=== PATIENT | female | born 1935 | race African-American/Black ===

== ENCOUNTER 2023-06-12 14:57 | Inpatient (IN) | payer OTHER ==
[~2023-06-12] VITALS: Ht 154.9 cm; Wt 59.0 kg
[2023-06-12] MEDS ORDERED: MORPHINE SULFATE 4 MG/ML SYR IVP ONE (15:10)
[2023-06-12 15:15] VITALS: BP 185/86; PULSE 78; RESP 18; TEMP 98; O2SAT 100; O2SAT 97
[2023-06-12 15:50] LABS: BASOPHILS # (AUTO) 0.1 K/uL (0.00-0.22); EOSINOPHILS # (AUTO) 0.1 K/uL (0-0.4); EOSINOPHILS % (AUTO) 1.4 % (0.0-4.0); HEMATOCRIT 36.4 % (36-48); HEMOGLOBIN 11.8 g/dL (12.0-16.0); LYMPHOCYTES # (AUTO) 2.1 K/uL (2.5-16.5); LYMPHOCYTES % (AUTO) 28.3 % (20.5-51.1); MEAN CORPUSCULAR HEMOGLOBIN 33 pg (27-31); MEAN CORPUSCULAR HGB CONC 32 g/dL (33-37); MEAN CORPUSCULAR VOLUME 100.7 fL (80-94); MONOCYTES # (AUTO) 0.8 K/uL (0.8-1.0); MONOCYTES % (AUTO) 10.8 % (1.7-9.3); NEUTROPHILS # (AUTO) 4.3 K/uL (1.8-7.7); NEUTROPHILS % (AUTO) 58.5 % (42.2-75.2); PLATELET COUNT (AUTO) 172 K/uL (140-450); RED BLOOD CELL COUNT(AUTO) 3.61 MIL/uL (4.20-5.40); RED CELL DISTRIBUTION WIDTH 15.5 % (11.6-13.7); WHITE BLOOD COUNT (AUTO) 7.3 K/uL (4.8-10.8)
[2023-06-12 16:17] LABS: ALANINE AMINOTRANSFERASE 11 U/L (12-78); ALBUMIN 3.2 g/dL (3.4-5.0); ALKALINE PHOSPHATASE 101 U/L (50-136); ANION GAP 14.5 (8-16); ASPARTATE AMINOTRANSFERASE 9 U/L (15-37); CARBON DIOXIDE 30.3 mmol/L (21-32); CHLORIDE 97 mmol/L (98-107); CREATININE 3.7 mg/dL (0.6-1.3); GLUCOSE 104 mg/dL (74-106); LIPASE 34 U/L (16-77); POTASSIUM 3.8 mmol/L (3.5-5.1); SODIUM SERUM 138 mmol/L (136-145); TOTAL BILIRUBIN 0.4 mg/dL (0.0-1.0); TOTAL PROTEIN, SERUM 7.6 g/dL (6.4-8.2); UREA NITROGEN, BLOOD 21 mg/dL (7-18)
[2023-06-12] MEDS ORDERED: MORPHINE SULFATE 4 MG/ML SYR ONE (16:20)
[2023-06-12 17:14] VITALS: O2SAT 100
[2023-06-12] MEDS ORDERED: LABETALOL 20 MG/4 ML VIAL IVP ONE ×2 (18:45→20:02)
[2023-06-12 19:01] VITALS: O2SAT 100
[2023-06-12 20:04] LABS: APPEARANCE,URINE CLEAR (CLEAR); BILIRUBIN,URINE NEGATIVE (NEGATIVE); BLOOD, URINE NEGATIVE (NEGATIVE); COLOR,URINE YELLOW (YELLOW); LEUKOCYTE ESTERASE ,URINE TRACE (NEGATIVE); NITRITE, URINE NEGATIVE (NEGATIVE); PROTEIN,URINE 2+ (NEGATIVE); UGLUCOSE NEGATIVE (NEGATIVE); UROBILINOGEN,URINE 0.2 EU/dL (0.2 - 1)
[2023-06-12 20:07] VITALS: O2SAT 100
[2023-06-12 20:15] LABS: RBC,URINE 0-5 /HPF (0-5)
[2023-06-12 20:16] LABS: BACTERIA,URINE 10-30 (MOD) /HPF (None Seen); SQUAMOUS EPITHELIAL CELL,UR 0-3 (FEW) /LPF (0-3 (FEW)); WBC,URINE 0-5 /HPF (0-5)
[2023-06-12 21:00] VITALS: PULSE 69; RESP 18; O2SAT 100
[2023-06-12 21:08] VITALS: BP 167/75; PULSE 63; PULSE 65; RESP 18; TEMP 98.7; O2SAT 100
[2023-06-12] MEDS ORDERED: ACETAMINOPHEN 325 MG TAB PO PRN (21:20)
[2023-06-12] MEDS ORDERED: cefTRIAXone 1,000 MG VIAL ONE (22:13)
[2023-06-13] VITALS (8 sets, daily range): BP systolic 112–167; BP diastolic 63–76; PULSE 56–107; RESP 16–18; TEMP 97.3–98.7; O2SAT 97–100
[2023-06-13 06:59] LABS: BASOPHILS % (AUTO) 0.8 % (0.0-2.0); EOSINOPHILS # (AUTO) 0.1 K/uL (0-0.4); EOSINOPHILS % (AUTO) 1.6 % (0.0-4.0); HEMATOCRIT 33.2 % (36-48); HEMOGLOBIN 10.7 g/dL (12.0-16.0); LYMPHOCYTES # (AUTO) 1.5 K/uL (2.5-16.5); LYMPHOCYTES % (AUTO) 27.9 % (20.5-51.1); MEAN CORPUSCULAR HEMOGLOBIN 33 pg (27-31); MEAN CORPUSCULAR HGB CONC 32 g/dL (33-37); MONOCYTES # (AUTO) 0.8 K/uL (0.8-1.0); MONOCYTES % (AUTO) 14.3 % (1.7-9.3); NEUTROPHILS % (AUTO) 55.4 % (42.2-75.2); PLATELET COUNT (AUTO) 162 K/uL (140-450); RED BLOOD CELL COUNT(AUTO) 3.29 MIL/uL (4.20-5.40); WHITE BLOOD COUNT (AUTO) 5.4 K/uL (4.8-10.8)
[2023-06-13 07:23] LABS: ALANINE AMINOTRANSFERASE 11 U/L (12-78); ALBUMIN 2.8 g/dL (3.4-5.0); ALKALINE PHOSPHATASE 82 U/L (50-136); ANION GAP 11.6 (8-16); ASPARTATE AMINOTRANSFERASE 10 U/L (15-37); CALCIUM 8.8 mg/dL (8.5-10.1); CARBON DIOXIDE 31.7 mmol/L (21-32); CHLORIDE 99 mmol/L (98-107); GLUCOSE 91 mg/dL (74-106); MAGNESIUM 1.8 mg/dL (1.8-2.4); PHOSPHORUS 5.1 mg/dL (2.5-4.9); POTASSIUM 4.3 mmol/L (3.5-5.1); SODIUM SERUM 138 mmol/L (136-145); TOTAL BILIRUBIN 0.3 mg/dL (0.0-1.0); TOTAL PROTEIN, SERUM 6.8 g/dL (6.4-8.2); UREA NITROGEN, BLOOD 23 mg/dL (7-18)
[2023-06-13 07:35] LABS: CREATININE 4.5 mg/dL (0.6-1.3)
[2023-06-13] MEDS: hydrALAZINE 10 MG TAB PO SCH ×3 (08:23→17:18)
[2023-06-13] MEDS: ONDANSETRON 4 MG/2 ML VIAL IVP PRN (20:54)
[2023-06-14] VITALS (7 sets, daily range): BP systolic 105–159; BP diastolic 50–79; PULSE 62–85; RESP 15–19; TEMP 97–98.8; O2SAT 96–100
[2023-06-14 06:30] LABS: ANION GAP 11.8 (8-16); CALCIUM 9.1 mg/dL (8.5-10.1); CARBON DIOXIDE 32.1 mmol/L (21-32); CHLORIDE 96 mmol/L (98-107); CREATININE 3.2 mg/dL (0.6-1.3); GLUCOSE 94 mg/dL (74-106); POTASSIUM 3.9 mmol/L (3.5-5.1); SODIUM SERUM 136 mmol/L (136-145); UREA NITROGEN, BLOOD 11 mg/dL (7-18)
[2023-06-14 06:32] LABS: MAGNESIUM 1.9 mg/dL (1.8-2.4); PHOSPHORUS 4.3 mg/dL (2.5-4.9)
[2023-06-14 07:08] LABS: BASOPHILS % (AUTO) 0.5 % (0.0-2.0); EOSINOPHILS # (AUTO) 0.2 K/uL (0-0.4); HEMATOCRIT 36.8 % (36-48); LYMPHOCYTES # (AUTO) 1.1 K/uL (2.5-16.5); LYMPHOCYTES % (AUTO) 19.8 % (20.5-51.1); MEAN CORPUSCULAR HEMOGLOBIN 33 pg (27-31); MEAN CORPUSCULAR HGB CONC 33 g/dL (33-37); MEAN CORPUSCULAR VOLUME 100.6 fL (80-94); MONOCYTES # (AUTO) 0.7 K/uL (0.8-1.0); MONOCYTES % (AUTO) 13.5 % (1.7-9.3); NEUTROPHILS # (AUTO) 3.5 K/uL (1.8-7.7); NEUTROPHILS % (AUTO) 63.2 % (42.2-75.2); PLATELET COUNT (AUTO) 168 K/uL (140-450); RED BLOOD CELL COUNT(AUTO) 3.66 MIL/uL (4.20-5.40); RED CELL DISTRIBUTION WIDTH 15.8 % (11.6-13.7); WHITE BLOOD COUNT (AUTO) 5.5 K/uL (4.8-10.8)
[2023-06-14] MEDS: hydrALAZINE 10 MG TAB PO SCH ×3 (08:09→16:16)
[2023-06-15 04:00] VITALS: BP 132/61; PULSE 71; RESP 18; TEMP 97.6; O2SAT 100
[2023-06-15 07:04] LABS: BASOPHILS % (AUTO) 0.8 % (0.0-2.0); EOSINOPHILS # (AUTO) 0.2 K/uL (0-0.4); EOSINOPHILS % (AUTO) 3.2 % (0.0-4.0); HEMATOCRIT 37.9 % (36-48); HEMOGLOBIN 12.1 g/dL (12.0-16.0); LYMPHOCYTES # (AUTO) 1.4 K/uL (2.5-16.5); MEAN CORPUSCULAR HEMOGLOBIN 33 pg (27-31); MEAN CORPUSCULAR HGB CONC 32 g/dL (33-37); MEAN CORPUSCULAR VOLUME 101.5 fL (80-94); MONOCYTES # (AUTO) 0.8 K/uL (0.8-1.0); NEUTROPHILS # (AUTO) 2.8 K/uL (1.8-7.7); PLATELET COUNT (AUTO) 163 K/uL (140-450); RED BLOOD CELL COUNT(AUTO) 3.73 MIL/uL (4.20-5.40); RED CELL DISTRIBUTION WIDTH 15.9 % (11.6-13.7); WHITE BLOOD COUNT (AUTO) 5.2 K/uL (4.8-10.8)
[2023-06-15 07:09] LABS: ANION GAP 14.1 (8-16); CALCIUM 9.1 mg/dL (8.5-10.1); CARBON DIOXIDE 28.7 mmol/L (21-32); CHLORIDE 99 mmol/L (98-107); CREATININE 3.3 mg/dL (0.6-1.3); GLUCOSE 105 mg/dL (74-106); POTASSIUM 3.8 mmol/L (3.5-5.1); SODIUM SERUM 138 mmol/L (136-145); UREA NITROGEN, BLOOD 16 mg/dL (7-18)
[2023-06-15 07:13] LABS: PHOSPHORUS 4.3 mg/dL (2.5-4.9)
[2023-06-15 08:00] VITALS: BP 154/76; PULSE 64; RESP 18; TEMP 97.9; O2SAT 100
[2023-06-15] MEDS: hydrALAZINE 10 MG TAB PO SCH ×3 (09:20→18:04)
[2023-06-15 12:00] VITALS: BP 145/73; PULSE 93; RESP 20
[2023-06-15] MEDS: ONDANSETRON 4 MG/2 ML VIAL IVP PRN ×2 (15:09→22:43)
[2023-06-15 16:00] VITALS: BP 141/65; PULSE 72; RESP 18; TEMP 98.9; O2SAT 100
[2023-06-15 20:00] VITALS: BP 151/82; PULSE 72; RESP 18; TEMP 98.8; O2SAT 100
[2023-06-15] MEDS: HYDROcodone/APAP 5/325 MG 1 TAB TAB PO PRN (22:36)
[2023-06-16] VITALS (8 sets, daily range): BP systolic 117–182; BP diastolic 63–100; PULSE 78–106; RESP 18; TEMP 97.4–98.9; O2SAT 94–100
[2023-06-16] MEDS ORDERED: PANTOPRAZOLE 40 MG INJ VIAL IVP ONE (01:40)
[2023-06-16] MEDS ORDERED: hydrALAZINE 20 MG/ML VIAL IVP PRN (01:40)
[2023-06-16] MEDS ORDERED: hydrALAZINE 20 MG/ML VIAL IVP ONE (03:15)
[2023-06-16] MEDS: ONDANSETRON 4 MG/2 ML VIAL IVP PRN ×2 (04:26→20:50)
[2023-06-16] MEDS ORDERED: KETOROLAC 30 MG/ML VIAL IVP ONE (05:00)
[2023-06-16 07:01] LABS: BASOPHILS % (AUTO) 0.2 % (0.0-2.0); EOSINOPHILS % (AUTO) 0.1 % (0.0-4.0); HEMOGLOBIN 12.8 g/dL (12.0-16.0); LYMPHOCYTES # (AUTO) 0.4 K/uL (2.5-16.5); LYMPHOCYTES % (AUTO) 4.5 % (20.5-51.1); MEAN CORPUSCULAR HEMOGLOBIN 33 pg (27-31); MEAN CORPUSCULAR HGB CONC 33 g/dL (33-37); MEAN CORPUSCULAR VOLUME 99.3 fL (80-94); MONOCYTES # (AUTO) 0.5 K/uL (0.8-1.0); NEUTROPHILS # (AUTO) 8.6 K/uL (1.8-7.7); NEUTROPHILS % (AUTO) 90.2 % (42.2-75.2); PLATELET COUNT (AUTO) 176 K/uL (140-450); RED BLOOD CELL COUNT(AUTO) 3.93 MIL/uL (4.20-5.40); RED CELL DISTRIBUTION WIDTH 15.7 % (11.6-13.7); WHITE BLOOD COUNT (AUTO) 9.6 K/uL (4.8-10.8)
[2023-06-16 08:00] LABS: ALANINE AMINOTRANSFERASE 7 U/L (12-78); ALBUMIN 3.5 g/dL (3.4-5.0); ALKALINE PHOSPHATASE 89 U/L (50-136); ASPARTATE AMINOTRANSFERASE 13 U/L (15-37); CALCIUM 9.5 mg/dL (8.5-10.1); CARBON DIOXIDE 19.6 mmol/L (21-32); CHLORIDE 93 mmol/L (98-107); GLUCOSE 184 mg/dL (74-106); MAGNESIUM 1.9 mg/dL (1.8-2.4); PHOSPHORUS 2.9 mg/dL (2.5-4.9); POTASSIUM 3.6 mmol/L (3.5-5.1); SODIUM SERUM 133 mmol/L (136-145); TOTAL BILIRUBIN 0.4 mg/dL (0.0-1.0); TOTAL PROTEIN, SERUM 7.9 g/dL (6.4-8.2); UREA NITROGEN, BLOOD 34 mg/dL (7-18)
[2023-06-16 08:06] LABS: CREATININE 5.1 mg/dL (0.6-1.3)
[2023-06-16] MEDS: hydrALAZINE 10 MG TAB PO SCH ×3 (09:00→17:16)
[2023-06-17] VITALS: BP 139/72; PULSE 113; PULSE 98; RESP 20; TEMP 98.9; O2SAT 99
[2023-06-17] MEDS: ONDANSETRON 4 MG/2 ML VIAL IVP PRN ×3 (03:57→14:02)
[2023-06-17 04:00] VITALS: BP 139/72; PULSE 102; PULSE 113; RESP 20; TEMP 98.4; O2SAT 99
[2023-06-17 07:27] LABS: BASOPHILS % (AUTO) 0.2 % (0.0-2.0); HEMATOCRIT 35.8 % (36-48); HEMOGLOBIN 11.5 g/dL (12.0-16.0); LYMPHOCYTES # (AUTO) 0.8 K/uL (2.5-16.5); MEAN CORPUSCULAR HEMOGLOBIN 32 pg (27-31); MEAN CORPUSCULAR HGB CONC 32 g/dL (33-37); MEAN CORPUSCULAR VOLUME 99.9 fL (80-94); MONOCYTES # (AUTO) 2.2 K/uL (0.8-1.0); MONOCYTES % (AUTO) 10.9 % (1.7-9.3); NEUTROPHILS % (AUTO) 84.9 % (42.2-75.2); PLATELET COUNT (AUTO) 147 K/uL (140-450); RED BLOOD CELL COUNT(AUTO) 3.59 MIL/uL (4.20-5.40); RED CELL DISTRIBUTION WIDTH 15.6 % (11.6-13.7)
[2023-06-17 07:42] LABS: ANION GAP 15.4 (8-16); CALCIUM 9.2 mg/dL (8.5-10.1); CARBON DIOXIDE 28.9 mmol/L (21-32); CHLORIDE 95 mmol/L (98-107); GLUCOSE 136 mg/dL (74-106); POTASSIUM 4.3 mmol/L (3.5-5.1); SODIUM SERUM 135 mmol/L (136-145); UREA NITROGEN, BLOOD 26 mg/dL (7-18)
[2023-06-17 07:50] LABS: MAGNESIUM 1.8 mg/dL (1.8-2.4)
[2023-06-17 08:00] VITALS: BP 169/84; PULSE 105; PULSE 107; PULSE 94; RESP 16; RESP 20; TEMP 98.3; O2SAT 98; O2SAT 99
[2023-06-17 08:01] LABS: CREATININE 4.8 mg/dL (0.6-1.3)
[2023-06-17] MEDS: hydrALAZINE 10 MG TAB PO SCH ×3 (09:54→16:50)
[2023-06-17] MEDS: HYDROcodone/APAP 5/325 MG 1 TAB TAB PO PRN (09:55)
[2023-06-17 12:00] VITALS: BP 155/81; PULSE 83; PULSE 88; RESP 17; TEMP 98; O2SAT 99
[2023-06-17 16:00] VITALS: BP 174/83; PULSE 90; PULSE 91; RESP 18; TEMP 98.3; O2SAT 100
[2023-06-17 20:00] VITALS: BP 140/67; PULSE 105; PULSE 93; RESP 17; TEMP 98.6; O2SAT 99
[2023-06-18] VITALS (7 sets, daily range): BP systolic 120–158; BP diastolic 63–91; PULSE 89–121; RESP 17–20; TEMP 97.9–99.7; O2SAT 96–100
[2023-06-18 07:13] LABS: BASOPHILS % (AUTO) 0.2 % (0.0-2.0); HEMATOCRIT 34.4 % (36-48); HEMOGLOBIN 11.2 g/dL (12.0-16.0); LYMPHOCYTES # (AUTO) 0.9 K/uL (2.5-16.5); LYMPHOCYTES % (AUTO) 3.6 % (20.5-51.1); MEAN CORPUSCULAR HEMOGLOBIN 32 pg (27-31); MEAN CORPUSCULAR HGB CONC 33 g/dL (33-37); MEAN CORPUSCULAR VOLUME 98.5 fL (80-94); MONOCYTES % (AUTO) 7.7 % (1.7-9.3); NEUTROPHILS # (AUTO) 22.8 K/uL (1.8-7.7); NEUTROPHILS % (AUTO) 88.5 % (42.2-75.2); PLATELET COUNT (AUTO) 137 K/uL (140-450); RED CELL DISTRIBUTION WIDTH 15.3 % (11.6-13.7)
[2023-06-18 07:21] LABS: CALCIUM 8.8 mg/dL (8.5-10.1); CARBON DIOXIDE 25.9 mmol/L (21-32); CHLORIDE 93 mmol/L (98-107); GLUCOSE 100 mg/dL (74-106); POTASSIUM 3.9 mmol/L (3.5-5.1); SODIUM SERUM 132 mmol/L (136-145); UREA NITROGEN, BLOOD 40 mg/dL (7-18)
[2023-06-18 07:26] LABS: MAGNESIUM 1.8 mg/dL (1.8-2.4); PHOSPHORUS 5.8 mg/dL (2.5-4.9)
[2023-06-18 07:45] LABS: CREATININE 6.1 mg/dL (0.6-1.3)
[2023-06-18 07:50] LABS: WHITE BLOOD COUNT (AUTO) 25.8 K/uL (4.8-10.8)
[2023-06-18] MEDS: ONDANSETRON 4 MG/2 ML VIAL IVP PRN ×2 (08:25→21:26)
[2023-06-18] MEDS: hydrALAZINE 10 MG TAB PO SCH ×3 (08:36→16:48)
[2023-06-18] MEDS: HYDROcodone/APAP 5/325 MG 1 TAB TAB PO PRN (09:15)
[2023-06-18] MEDS: METOCLOPRAMIDE 10 MG/2 ML INJ VIAL IVP SCH ×2 (11:08→16:52)
[2023-06-18] MEDS ORDERED: METOCLOPRAMIDE 10 MG TAB PO SCH (11:30)
[2023-06-18] MEDS: MORPHINE SULFATE 2 MG/ML SYR IVP PRN (15:33)
[2023-06-18] MEDS ORDERED: VANCOMYCIN PER PHARMACY MC PRN (18:05)
[2023-06-18] MEDS ORDERED: VANCOMYCIN 1,000 MG in DEXTROSE 5% 250 ML IV SCH (18:30)
[2023-06-18] MEDS: CEFEPIME 1,000 MG in DEXTROSE 5% 50 ML IV SCH (21:27)
[2023-06-19] VITALS (8 sets, daily range): BP systolic 116–149; BP diastolic 62–91; PULSE 80–108; RESP 18–20; TEMP 97.3–98.6; O2SAT 98–100
[2023-06-19] MEDS: ONDANSETRON 4 MG/2 ML VIAL IVP PRN (05:51)
[2023-06-19 07:14] LABS: BASOPHILS % (AUTO) 0.1 % (0.0-2.0); EOSINOPHILS # (AUTO) 0.1 K/uL (0-0.4); EOSINOPHILS % (AUTO) 0.2 % (0.0-4.0); HEMATOCRIT 33.9 % (36-48); HEMOGLOBIN 11.1 g/dL (12.0-16.0); LYMPHOCYTES # (AUTO) 1.1 K/uL (2.5-16.5); LYMPHOCYTES % (AUTO) 3.9 % (20.5-51.1); MEAN CORPUSCULAR HEMOGLOBIN 32 pg (27-31); MEAN CORPUSCULAR HGB CONC 33 g/dL (33-37); MEAN CORPUSCULAR VOLUME 98.1 fL (80-94); MONOCYTES # (AUTO) 1.2 K/uL (0.8-1.0); NEUTROPHILS # (AUTO) 26.3 K/uL (1.8-7.7); NEUTROPHILS % (AUTO) 91.8 % (42.2-75.2); PLATELET COUNT (AUTO) 148 K/uL (140-450); RED BLOOD CELL COUNT(AUTO) 3.45 MIL/uL (4.20-5.40); RED CELL DISTRIBUTION WIDTH 15.5 % (11.6-13.7)
[2023-06-19 07:22] LABS: ANION GAP 18.7 (8-16); CALCIUM 9.2 mg/dL (8.5-10.1); CARBON DIOXIDE 25.7 mmol/L (21-32); CHLORIDE 91 mmol/L (98-107); GLUCOSE 142 mg/dL (74-106); POTASSIUM 4.4 mmol/L (3.5-5.1); SODIUM SERUM 131 mmol/L (136-145); UREA NITROGEN, BLOOD 38 mg/dL (7-18)
[2023-06-19 07:29] LABS: CREATININE 5.4 mg/dL (0.6-1.3)
[2023-06-19 07:33] LABS: WHITE BLOOD COUNT (AUTO) 28.7 K/uL (4.8-10.8)
[2023-06-19] MEDS: METOCLOPRAMIDE 10 MG/2 ML INJ VIAL IVP SCH ×3 (08:00→16:50)
[2023-06-19 09:13] LABS: PHOSPHORUS 3.9 mg/dL (2.5-4.9)
[2023-06-19] MEDS: hydrALAZINE 10 MG TAB PO SCH ×3 (09:26→17:27)
[2023-06-19] MEDS: CEFEPIME 1,000 MG in DEXTROSE 5% 50 ML IV SCH (20:24)
[2023-06-19] MEDS: MORPHINE SULFATE 2 MG/ML SYR IVP PRN (21:41)
[2023-06-20] VITALS (7 sets, daily range): BP systolic 124–154; BP diastolic 73–89; PULSE 60–121; RESP 18–21; TEMP 97.9–98.6; O2SAT 96–99
[2023-06-20] MEDS: METOCLOPRAMIDE 10 MG/2 ML INJ VIAL IVP SCH ×3 (06:26→16:43)
[2023-06-20 07:07] LABS: ANION GAP 15.8 (8-16); BASOPHILS # (AUTO) 0.1 K/uL (0.00-0.22); BASOPHILS % (AUTO) 0.3 % (0.0-2.0); CALCIUM 9.5 mg/dL (8.5-10.1); CARBON DIOXIDE 28.4 mmol/L (21-32); CHLORIDE 91 mmol/L (98-107); EOSINOPHILS # (AUTO) 0.1 K/uL (0-0.4); EOSINOPHILS % (AUTO) 0.6 % (0.0-4.0); GLUCOSE 120 mg/dL (74-106); HEMATOCRIT 36.2 % (36-48); HEMOGLOBIN 11.8 g/dL (12.0-16.0); LYMPHOCYTES # (AUTO) 0.6 K/uL (2.5-16.5); LYMPHOCYTES % (AUTO) 3.1 % (20.5-51.1); MEAN CORPUSCULAR HEMOGLOBIN 32 pg (27-31); MEAN CORPUSCULAR HGB CONC 33 g/dL (33-37); MEAN CORPUSCULAR VOLUME 98.2 fL (80-94); MONOCYTES # (AUTO) 0.8 K/uL (0.8-1.0); MONOCYTES % (AUTO) 4.4 % (1.7-9.3); NEUTROPHILS # (AUTO) 16.3 K/uL (1.8-7.7); NEUTROPHILS % (AUTO) 91.6 % (42.2-75.2); PLATELET COUNT (AUTO) 162 K/uL (140-450); POTASSIUM 4.2 mmol/L (3.5-5.1); RED BLOOD CELL COUNT(AUTO) 3.69 MIL/uL (4.20-5.40); RED CELL DISTRIBUTION WIDTH 15.6 % (11.6-13.7); SODIUM SERUM 131 mmol/L (136-145); WHITE BLOOD COUNT (AUTO) 17.8 K/uL (4.8-10.8)
[2023-06-20 07:25] LABS: CREATININE 6.7 mg/dL (0.6-1.3); UREA NITROGEN, BLOOD 67 mg/dL (7-18)
[2023-06-20 08:02] LABS: MAGNESIUM 2.2 mg/dL (1.8-2.4); PHOSPHORUS 4.2 mg/dL (2.5-4.9)
[2023-06-20] MEDS: LORazepam 2 MG/ML VIAL IVP PRN (08:27)
[2023-06-20] MEDS: hydrALAZINE 10 MG TAB PO SCH ×3 (09:00→17:26)
[2023-06-20] MEDS ORDERED: VANCOMYCIN 750 MG in DEXTROSE 5% 250 ML IV SCH (21:00)
[2023-06-20] MEDS: CEFEPIME 1,000 MG in DEXTROSE 5% 50 ML IV SCH (21:26)
[2023-06-21] VITALS (7 sets, daily range): BP systolic 137–172; BP diastolic 70–100; PULSE 75–97; RESP 18–19; TEMP 96.8–98; O2SAT 96–98
[2023-06-21] MEDS: METOCLOPRAMIDE 10 MG/2 ML INJ VIAL IVP SCH ×3 (06:34→16:30)
[2023-06-21 07:27] LABS: ANION GAP 17.6 (8-16); CALCIUM 9.1 mg/dL (8.5-10.1); CARBON DIOXIDE 26.9 mmol/L (21-32); CHLORIDE 94 mmol/L (98-107); EOSINOPHILS # (AUTO) 0.1 K/uL (0-0.4); GLUCOSE 106 mg/dL (74-106); POTASSIUM 4.5 mmol/L (3.5-5.1); SODIUM SERUM 134 mmol/L (136-145); UREA NITROGEN, BLOOD 40 mg/dL (7-18)
[2023-06-21 07:31] LABS: BASOPHILS # (AUTO) 0.1 K/uL (0.00-0.22); MONOCYTES # (AUTO) 2.7 K/uL (0.8-1.0); NEUTROPHILS # (AUTO) 17.9 K/uL (1.8-7.7)
[2023-06-21 07:37] LABS: CREATININE 5.1 mg/dL (0.6-1.3)
[2023-06-21 08:04] LABS: MAGNESIUM 2.2 mg/dL (1.8-2.4); PHOSPHORUS 3.8 mg/dL (2.5-4.9)
[2023-06-21 08:06] LABS: HEMATOCRIT 37.4 % (36-48); HEMOGLOBIN 11.8 g/dL (12.0-16.0); MEAN CORPUSCULAR HEMOGLOBIN 31 pg (27-31); MEAN CORPUSCULAR HGB CONC 32 g/dL (33-37); MEAN CORPUSCULAR VOLUME 99.6 fL (80-94); PLATELET COUNT (AUTO) 140 K/uL (140-450); RED BLOOD CELL COUNT(AUTO) 3.76 MIL/uL (4.20-5.40); RED CELL DISTRIBUTION WIDTH 15.9 % (11.6-13.7); WHITE BLOOD COUNT (AUTO) 19.9 K/uL (4.8-10.8)
[2023-06-21 08:36] LABS: EOSINOPHILS % (MANUAL) 1 % (0-4); LYMPHOCYTES % (MANUAL) 7 % (20-46); MONOCYTES % (MANUAL) 11 % (5-12)
[2023-06-21] MEDS: hydrALAZINE 10 MG TAB PO SCH ×3 (09:40→17:00)
[2023-06-21] MEDS: ONDANSETRON 4 MG/2 ML VIAL IVP PRN (10:17)
[2023-06-21] MEDS: LORazepam 2 MG/ML VIAL IVP PRN (12:44)
[2023-06-21] MEDS ORDERED: PIPERACILLIN/TAZOBACTAM 2.25 GM VIAL IV ONE (21:00)
[2023-06-21] MEDS: PIPERACILLIN/TAZOBACTAM 2.25 GM in DEXTROSE 5% 50 ML IV SCH (21:03)
[2023-06-22 04:00] VITALS: BP 143/74; PULSE 88; RESP 18; TEMP 98.1; O2SAT 98
[2023-06-22] MEDS ORDERED: PIPERACILLIN/TAZOBACTAM 2.25 GM VIAL IV ONE (04:03)
[2023-06-22] MEDS: PIPERACILLIN/TAZOBACTAM 2.25 GM in DEXTROSE 5% 50 ML IV SCH ×3 (04:14→21:30)
[2023-06-22] MEDS: METOCLOPRAMIDE 10 MG/2 ML INJ VIAL IVP SCH ×3 (06:41→16:39)
[2023-06-22 08:00] VITALS: BP 137/79; PULSE 81; RESP 18; TEMP 97.5; O2SAT 97
[2023-06-22] MEDS: LORazepam 2 MG/ML VIAL IVP PRN (08:37)
[2023-06-22] MEDS: hydrALAZINE 10 MG TAB PO SCH ×3 (08:38→17:00)
[2023-06-22 16:00] VITALS: BP 136/77; PULSE 83; RESP 18; TEMP 97.8; O2SAT 100
[2023-06-22 20:00] VITALS: BP 132/72; PULSE 76; RESP 18; TEMP 98.2; O2SAT 98
[2023-06-23] VITALS: BP 140/66; PULSE 80; RESP 18; TEMP 97.6; O2SAT 97
[2023-06-23 04:00] VITALS: BP 136/76; PULSE 83; RESP 18; TEMP 97.8; O2SAT 98
[2023-06-23] MEDS: PIPERACILLIN/TAZOBACTAM 2.25 GM in DEXTROSE 5% 50 ML IV SCH ×3 (05:21→21:29)
[2023-06-23 08:00] VITALS: BP 163/85; PULSE 76; RESP 18; TEMP 97.2; O2SAT 98
[2023-06-23] MEDS: METOCLOPRAMIDE 10 MG/2 ML INJ VIAL IVP SCH ×3 (08:34→18:07)
[2023-06-23 08:35] VITALS: PULSE 68; RESP 20; O2SAT 100
[2023-06-23] MEDS: hydrALAZINE 10 MG TAB PO SCH ×3 (08:38→18:01)
[2023-06-23 20:00] VITALS: BP 126/77; PULSE 85; RESP 18; TEMP 97.5; O2SAT 98
[2023-06-24] VITALS: BP 144/79; PULSE 78; RESP 20; TEMP 98; O2SAT 98
[2023-06-24 04:00] VITALS: BP 144/70; PULSE 70; RESP 19; TEMP 98.2; O2SAT 98
[2023-06-24] MEDS: PIPERACILLIN/TAZOBACTAM 2.25 GM in DEXTROSE 5% 50 ML IV SCH ×2 (05:36→12:20)
[2023-06-24 08:00] VITALS: BP 147/79; PULSE 78; PULSE 85; RESP 18; TEMP 96; O2SAT 99
[2023-06-24 08:08] LABS: ANION GAP 18.7 (8-16); CALCIUM 8.6 mg/dL (8.5-10.1); CARBON DIOXIDE 27.9 mmol/L (21-32); CHLORIDE 95 mmol/L (98-107); GLUCOSE 108 mg/dL (74-106); POTASSIUM 4.6 mmol/L (3.5-5.1); SODIUM SERUM 137 mmol/L (136-145); UREA NITROGEN, BLOOD 48 mg/dL (7-18)
[2023-06-24 08:09] LABS: BASOPHILS # (AUTO) 0.1 K/uL (0.00-0.22); BASOPHILS % (AUTO) 1.2 % (0.0-2.0); EOSINOPHILS # (AUTO) 0.1 K/uL (0-0.4); HEMATOCRIT 33.9 % (36-48); HEMOGLOBIN 10.9 g/dL (12.0-16.0); LYMPHOCYTES # (AUTO) 1.6 K/uL (2.5-16.5); LYMPHOCYTES % (AUTO) 13.5 % (20.5-51.1); MEAN CORPUSCULAR HEMOGLOBIN 32 pg (27-31); MEAN CORPUSCULAR HGB CONC 32 g/dL (33-37); MEAN CORPUSCULAR VOLUME 98.2 fL (80-94); MONOCYTES # (AUTO) 1.8 K/uL (0.8-1.0); MONOCYTES % (AUTO) 14.9 % (1.7-9.3); NEUTROPHILS # (AUTO) 8.2 K/uL (1.8-7.7); NEUTROPHILS % (AUTO) 69.4 % (42.2-75.2); PLATELET COUNT (AUTO) 158 K/uL (140-450); RED BLOOD CELL COUNT(AUTO) 3.45 MIL/uL (4.20-5.40); RED CELL DISTRIBUTION WIDTH 16.6 % (11.6-13.7); WHITE BLOOD COUNT (AUTO) 11.9 K/uL (4.8-10.8)
[2023-06-24 08:24] LABS: CREATININE 6.6 mg/dL (0.6-1.3)
[2023-06-24] MEDS: hydrALAZINE 10 MG TAB PO SCH ×3 (09:15→17:18)
[2023-06-24] MEDS: METOCLOPRAMIDE 10 MG/2 ML INJ VIAL IVP SCH ×3 (09:15→17:16)
[2023-06-24 10:01] LABS: MAGNESIUM 2.3 mg/dL (1.8-2.4); PHOSPHORUS 5.8 mg/dL (2.5-4.9)
[2023-06-24] MEDS: ONDANSETRON 4 MG/2 ML VIAL IVP PRN (14:09)
[2023-06-24] MEDS: MORPHINE SULFATE 2 MG/ML SYR IVP PRN (14:11)
[2023-06-24] MEDS ORDERED: PIPE50SO5 IV (16:27)
[2023-06-24] MEDS ORDERED: APR10 PO (16:27)
[2023-06-24] MEDS ORDERED: METO-485 PO (16:27)
[2023-06-24 16:58] VITALS: BP_DIAS 81; PULSE 76
== END 2023-06-24 18:17 | DRG 291 ==
LOC: MED 14:57 → MTU 19:16
PROVIDERS: ADMIT Preventive Medicine Preventive Medicine/Occupational Environmental Medicine; ATTEND Preventive Medicine Preventive Medicine/Occupational Environmental Medicine
PROC: 5A1D70Z Performance of Urinary Filtration, Intermittent, Less than 6 Hours Per Day (ICD-10-PCS; principal; 2023-06-13)
PROC: 5A1D70Z Performance of Urinary Filtration, Intermittent, Less than 6 Hours Per Day (ICD-10-PCS; 2023-06-14)
PROC: 5A1D70Z Performance of Urinary Filtration, Intermittent, Less than 6 Hours Per Day (ICD-10-PCS; 2023-06-15)
PROC: 5A1D70Z Performance of Urinary Filtration, Intermittent, Less than 6 Hours Per Day (ICD-10-PCS; 2023-06-18)
PROC: 5A1D70Z Performance of Urinary Filtration, Intermittent, Less than 6 Hours Per Day (ICD-10-PCS; 2023-06-20)
PROC: 5A1D70Z Performance of Urinary Filtration, Intermittent, Less than 6 Hours Per Day (ICD-10-PCS; 2023-06-23)
DX: I13.2 Hypertensive heart and chronic kidney disease with heart failure and with stage 5 chronic kidney disease, or end stage renal disease (principal); A41.9 Sepsis, unspecified organism; I50.33 Acute on chronic diastolic (congestive) heart failure; N18.6 End stage renal disease; G93.41 Metabolic encephalopathy; N39.0 Urinary tract infection, site not specified; N17.9 Acute kidney failure, unspecified; E87.1 Hypo-osmolality and hyponatremia; E11.22 Type 2 diabetes mellitus with diabetic chronic kidney disease; E88.09 Other disorders of plasma-protein metabolism, not elsewhere classified; E83.39 Other disorders of phosphorus metabolism; D69.6 Thrombocytopenia, unspecified; E11.65 Type 2 diabetes mellitus with hyperglycemia; D63.1 Anemia in chronic kidney disease; Z79.01 Long term (current) use of anticoagulants; Z99.2 Dependence on renal dialysis; Z88.8 Allergy status to other drugs, medicaments and biological substances; Z79.899 Other long term (current) drug therapy; Z88.1 Allergy status to other antibiotic agents
CPT/HCPCS: 36415; 70450; 71045; 71275; 74018; 80048; 80053; 80202; 81001; 82948; 83690; 83735; 83880; 84100; 84484; 85025; 85651; 86140; 87040; 87070; 87081; 87086; 87205; 93005; 96374; 96375; 97110; 97112; 97116; 97163-GP; 97530; 99285; C9113; J0360; J0692; J0696; J1644; J1885; J2060; J2270; J2405; J2543; J2765; J3370; J3490; J7060; Q0092; Q9967